=== PATIENT | male | born 1990 | race Caucasian/White ===

== ENCOUNTER 2021-09-05 10:16 | Emergency (ER) | payer OTHER ==
--- OUTSIDE RECORDS SUMMARY | 2021-09-05 10:20 | XMS REPORT | Continuity of Care Document ---
:1990 Author Organization [facility] t Address [address] [place] [address] Care Team Providers Name Role Phone SCHEBLER Primary Care Physician Unavailable May Attending Clinician Unavailable CONNOR, Carlitos Attending Clinician Unavailable ALAMO Attending Clinician Unavailable Alamo DO Attending Clinician GRAMM, A Attending Clinician Unavailable Gramm DISTRICT SALES REPRESENTATIVE, A Attending Clinician Ibrahima Collins Attending Clinician Unavailable Physician, Primary or Family Admitting Clinician Unavailabl e KNOW Admitting Clinician Unavailable GRAMM, A Admitting Clinician Unavailable Payers Payer Name Policy Type Policy Number Effective Date Expiration Date Tristan SHERMAN [id number] 2020 00:00:00 Problems Condition Condition Condition Status Onset Resolution Last Treating Co mments Source Name Details Category Date Date Treatment Clinician Date Calculus Calculus Disease Active Overview: 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 Added automatic ally from request for surgery [id number] Allergies, Adverse Reactions, Alerts Allergy Allergy Status Severity Reaction(s) Onset Inactive Treating Comm ents Source Name Type Date Date Clinician No Known DA Active U [facility] Allergie 6-08 Clear s 00:00: Cormier 00 [facility] No Known DA Active U [facility] Allergie 8-30 Corpus s 00:00: Kay 00 [facility] NO KNOWN Drug Active Univers ALLERGIE Class ity of S [facility] Social History Social Habit Start Date Stop Date Quantity Comments Source Exposure to Not sure [facility] SARS-CoV-2 (event) [facility] Alcohol intake 2021-08-31 2021-08-31 Current drinker Unive rsity of 00:00:00 00:00:00 of alcohol [facility] (finding) [place] Cigarettes smoked 2020-12-25 2020-12-25 Univers ity of current (pack per 00:00:00 00:00:00 [place] ) - Reported [facility] Cigarette 2020-12-25 2020-12-25 University of pack-years 00:00:00 00:00:00 [facility] Tobacco use and 2020-12-25 2020-12-25 Never used Universit y of exposure 00:00:00 00:00:00 [facility] Sex Assigned At [birth year] Universit y of 00:00:00 00:00:00 [facility] Smoking Status Start Date Stop Date Source Current every day smoker 2020-12-25 00:00:00 Uni versity of [facility] Medications Ordered Filled Start Stop Current Ordering Indication Dosage Frequency Signature Comments Components Source Medication Medication Date Date Medication? Clinician (SIG) Name Name ketorolac 15mg 15 mg, Unive rs (TORADOL) 09-01 Slow IV ity of injection 16:30: 15:45 Push, [place] 15 mg 00 :00 ONCE, 1 Medical dose, On Branch Tue09/01/21 at 1030, TAJ naproxen Yes [id number] 550mg Take 1 U nivers sodium 2-01 tablet by ity of (ANAPROX 00:00: mouth 2 [place] DS) 550 mg 00 (two) Medical tablet times Branch daily with meals. methylPREDN Yes [id number] Take by Univers ISolone 09-01 mouth ity of (MEDROL, 00:00: SEE-INSTRU Mango as VASQUEZ,) 4 mg 00 CTIONS. Medica l tablets follow Branch package directions methocarbam 2021- Yes [id number] 500mg Take 1 Univers oL 500 mg 09-0107 tablet by ity of tablet 00:00: 05:59 mouth 3 [place] 00 :00 (three) Medical times Branch daily for 5 days. tamsulosin Yes [id number] .4mg Take 1 U nivers 0.4 mg 24 6-11 capsule by ity of hr capsule 00:00: mouth 00 daily. Medical Branch ibuprofen Yes [id number] 600mg Take 1 U nivers 600 mg 6-11 tablet by ity of tablet 00:00: mouth [place] 00 every 6 Medical (six) Branch hours as needed for Pain (scale 4-6). oxybutynin Yes [id number] 5mg Take 1 U nivers chloride 5 6-11 tablet by ity of mg tablet 00:00: mouth 2 00 (two) Medical times Branch daily as needed for Bladder spasms. tamsulosin Yes [id number] .4mg Take 1 U nivers 0.4 mg 24 6-11 capsule by ity of hr capsule 00:00: mouth 00 daily. Medical Branch ibuprofen Yes [id number] 600mg Take 1 U nivers 600 mg 6-11 tablet by ity of tablet 00:00: mouth [place] 00 every 6 Medical (six) Branch hours as needed for Pain (scale 4-6). oxybutynin Yes [id number] 5mg Take 1 U nivers chloride 5 6-11 tablet by ity of mg tablet 00:00: mouth 2 00 (two) Medical times Branch daily as needed for Bladder spasms. acetaminoph 2021- No [id number] 650mg Take 2 Univers en 6-11 06-12 tablets by ity of (TYLENOL) 00:00: 04:59 mouth [place] 325 mg 00 :00 every 6 Medical tablet (six) Branch hours as needed for Pain (scale 1-3) or Alternate with ibuprofen for pain scale 4-6. acetaminoph 2021- No [id number] 650mg Take 2 Univers en 6-11 06-12 tablets by ity of (TYLENOL) 00:00: 04:59 mouth [place] 325 mg 00 :00 every 6 Medical tablet (six) Branch hours as needed for Pain (scale 1-3) or Alternate with ibuprofen for pain scale 4-6. Vital Signs Vital Name Observation Time Observation Value Comments Source Systolic blood 2021-09-01 15:13:00 134 mm[Hg] Univer sity of [facility] Diastolic blood 2021-09-01 15:13:00 72 [facility]Hg[facility] Heart rate 2021-09-01 15:13:00 84 /min Universi ty [facility] Body temperature 2021-09-01 15:13:00 35.89 May [facility] Respiratory rate 2021-09-01 15:13:00 16 /min [facility] Body height 2021-09-01 15:13:00 177.8 cm Universi ty [facility] Body weight 2021-09-01 15:13:00 65.772 kg Universi ty [facility] BMI 2021-09-01 15:13:00 20[facility]81 [facility] in 2021-09-01 15:13:00 100 /min University Arterial blood by [facility] Pulse oximetry Branch Systolic blood 2021-08-31 19:41:00 109 mm[Hg] Univer sit of [facility] Diastolic blood 2021-08-31 19:41:00 58 mm[Hg] [facility] Heart rate 2021-08-31 19:41:00 77 /min Universi ty [facility] Body temperature 2021-08-31 19:41:00 36.78 May [facility] Respiratory rate 2021-08-31 19:41:00 16 /min Univ [facility] Body weight 2021-08-31 19:41:00 64.048 kg Universi ty [facility] BMI 2021-08-31 19:41:00 19.69 kg/m2 [facility]i ty [facility] [place] [facility] Oxygen saturation in 2021-08-31 19:41:00 99 /min University of Arterial blood by [facility] Pulse oximetry Branch Procedures Procedure Date / Time Performed Performing Clinician Hermilo merlos TROPONIN I 2021-09-01 15:44[facility]00 [facility]OLIC [facility] 2021-09-01 15:44:[address] [facility] ([id number]) Medical [place] LIPID PANEL 2021-09-01 15:44:00 [facility] ([id number])(TOTAL Medical Branch CHOLESTEROL, TRIGLYCERIDES, HDL) CBC WITH DIFF 2021-09-01 15:44:00 [facility] [place] [facility] XR CHEST 1 VW 2021-09-01 15:28:09 [facility] [place] [facility] CONSENT/REFUSAL FOR 2021-09-01 14:59:43 Doctor Unassigned, No Un [facility] DIAGNOSIS AND Name Medical Branch TREATMENT Encounters Start End Encounter Admission Attending Care Care Encounter Source Date/Time Date/Time Type Type Clinicians Facility Department ID 2020-12-01 Inpatient HCAMN JAY [id number] [facility] 18:40:00 [id number] [facility] 2020-04-10 Inpatient Tyrel Marmolejo [facility] SDS [id number] [facility] 13:00:00 [facility] 2020-03-27 Inpatient EL Tyrel Scott [facility] LAB [id number] [facility] 13:00:00 [id number] [facility] 2020-03-10 Inpatient [facility] ER [id number] [facility] 05:58:00 [facility] 2020-01-07 Inpatient [facility] ER [id number] [facility] 18:02:00 [id number] [facility] 2021-09-03 2021-09-03 Outpatient ROHINI HAHN [facility] [id number] Univers 11:00:00 11:00:00 [id number] [facility] 2021-09-03 2021-09-03 Outpatient ROHINI HAHN [facility] [id number] Univers 11:00:00 11:00:00 [facility] 2021-09-01 2021-09-01 Emergency X SINGER NHDINESH ERT [id number] Univers 09:16:00 10:52:00 JER cardoza [facility] 2021-09-01 2021-09-01 [facility] [id number] Univers 09:16:00 10:52:00 Jer SWEENEY [id number] i ty [facility] [id number] [facility] [id number] [facility] [address] 2021-08-31 2021-08-31 Outpatient R SANDY [facility] [id number] Univers 13:30:00 13:45:09 LNIA sony [facility] 2021-08-31 2021-08-31 [facility] [id number] Univers 13:30:00 13:45:09 Visit Lina Schulz PATEL [id number] itcarlitos [facility] [id number] [facility] [id number] Vt dical NAL [address] [place] [address] 2021-08-28 2021-08-28 Outpatient Loraine DELGADO [facility] [id number] Univers 15:09:23 23:59:00 LINA cardoza [facility] 2020-12-02 2020-12-02 Outpatient DANIEL Collins LABO [id number] [facility] 00:11:00 00:11:00 Izzy [id number] [facility] 2020-03-17 2020-03-17 Outpatient Tyrel Scott [facility] LAB [id number] [facility] 13:00:00 13:00:00 [id number] [facility] Results Test Description Test Time Test Comments Results Result Comments Source TROPONIN I 2021-09-01 16:23:55 Test Item Value Reference Range Interpretation Comme nts TROPONIN I (test code = 0.004 ng/mL See_Comment [Au tomated message] The [id number]) system which ge nerated this result tra nsmitted reference range : <=0.034. The reference r braulio was not used to int erpret this result as normal/abnormal . NALDO (test code = NALDO) Reference (Normal) Range (defined by the 99th percentile reference limit): <= 0.034 ng/mL Note: Cardiac troponin begins to rise 3-4 hours after the onset of ischemia. Repeat in 4-6 hours if the sample was drawn within 3-4 hours of the onset of the symptom and found normal. Diagnosis of myocardial injury is made with acute changes in cTn concentrations with at least one serial sample above the 99th percentile upper reference limit (URL), taken together with the patient's clinical presentation. Biotin has been reported to cause a negative bias, interpret results relative to patient's use of biotin. Lab Interpretation Normal (test code = 20607-1) [facility]. METABOLIC PANEL ([id number])2021-09-01 16:12:14 Test Item Value Reference Range Interpretation Comments NA (test code = 140 mmol/L 135-145 1233095400) K (test code = 4.5 mmol/L 3.5-5.0 4661354420) CL (test code = 103 mmol/L 98-108 1595494229) CO2 TOTAL (test code = 28 mmol/L 23-31 2026247105) AGAP (test code = 2-16 5329746883) BUN (test code = 14 mg/dL 7-23 4350546988) GLUCOSE (test code = 74 mg/dL 70-110 5148132560) CREATININE (test code = 0.74 mg/dL 0.60-1.25 4506078266) TOTAL BILI (test code = 1.1 mg/dL 0.1-1.6 4175365454) CALCIUM (test code = 9.6 mg/dL 8.6-10.6 3309436659) T PROTEIN (test code = 8.7 g/dL 6.3-8.2 H 1482079560) ALBUMIN (test code = 5.5 g/dL 3.5-5.0 H 7963423637) ALK PHOS (test code = 49 U/L 34-122 2087187316) ALTv (test code = 21 U/L 5-50 1742-6) AST(SGOT) (test code = 25 U/L 13-40 8245669782) eGFR (test code = mL/min/1.73m2 3919858535) NALDO (test code = NALDO) Association of Glomerular Filtration Rate (GFR) and Staging of Kidney Disease* + --+ --+ ------+| GFR (mL/min/1.73 m2) ?| With Kidney Damage ?| ?Without Kidney Damage+ --------+ --------+ +| ?>90 ?| ?Stage one ?| ? Normal ?+ ---+ ---+ -------+| ?60-89 ?| ?Stage two ?| ? Decreased GFR ? + --+ --+ ------+| ?30-59 ?| ?Stage three ?| ? Stage three ? + --+ --+ ------+| ?15-29 ?| ?Stage four ? | ? Stage four ?+ ---+ ---+ -------+| ?<15 (or dialysis) ? ?| ?Stage five ? | ? Stage five ?+ ---+ ---+ -------+ *Each stage assumes the associated GFR level has been in effect for at least three months. ?Stages 1 to 5, with or without kidney disease, indicate chronic kidney disease. Notes: Determination of stages one and two (with eGFR >59mL/min/1.73 m2) requires estimation of kidney damage for at least three months as defined by structural or functional abnormalities of the kidney, manifested by either:Pathological abnormalities or Markers of kidney damage (including abnormalities in the composition of the blood or urine or abnormalities in imaging tests). Lab Interpretation Abnormal (test code = 50891-1) [id number]TOTAL CHOLESTEROL, TRIGLYCERIDES, HDL)2021-09-01 16:12:14 Test Item Value Reference Range Interpretation Comments CHOL (test code = 181 mg/dL 120-200 4191675076) HDL (test code = 64 mg/dL >40 8298802441) HDLC RATIO (test code = See_Comment [Au tomated message] [id number]) The system Moonfry[employer] generated this result transmit jeannine reference range : <=5.0. The refe rence range was not u sed to interpret th is result as normal/abnormal . TRIG (test code = 93 mg/dL 30-170 6774967513) LDL CHOL (test code = 98 mg/dL See_Comment [Auto mated message] 97734-8) The system Moon[employer]ry[employer] generated this result transmit jeannine reference range : <=160. The refe rence range was not u sed to interpret th is result as normal/abnormal . VLDL (test code = 19 mg/dL 5-60 2694440669) Lab Interpretation (test Normal code = 17907-4) [facility] WITH [id number] 16:00:37 Test Item Value Reference Range Interpretation Comments WBC (test code = See_Comment [Automated 6690-2) message] The sy stem which generated this result transmitted reference range : 4.20 - 10.70 10*3/?L. The reference range was not used to interpret this result as normal/abnormal . RBC (test code = See_Comment [Automated 789-8) message] The sy stem which generated this result transmitted reference range : 4.26 - 5.52 10*6/?L. The reference range was not used to interpret this result as normal/abnormal . HGB (test code = 16.2 g/dL 12.2-16.4 718-7) HCT (test code = 48.4 % 38.4-49.3 4544-3) MCV (test code = 89.8 fL 81.7-95.6 787-2) MCH (test code = 30.1 pg 26.1-32.7 785-6) MCHC (test code = 33.5 g/dL 31.2-35.0 786-4) RDW-SD (test code = 37.6 fL 38.5-51.6 L 82052-5) RDW-CV (test code = 11.6 % 12.1-15.4 L 788-0) PLT (test code = See_Comment [Automated 777-3) message] The sy stem which generated this result transmitted reference range : 150 - 328 10*3/ ?L. The reference r braulio was not used to interpret this result as normal/abnormal . MPV (test code = 10.4 fL 9.8-13.0 74366-8) NRBC/100 WBC (test See_Comment [Automat ed code = 4226328843) message] The system which generated this result transmitted reference range : 0.0 - 10.0 /100 WBCs. The refer ence range was not u sed to interpret th is result as normal/abnormal . NRBC x10^3 (test code <0.01 See_Comment [Auto mated = 3497252328) message] The s ystem which generated this result transmitted reference range : 10*3/?L. The reference range was not used to interpret this result as normal/abnormal . GRAN MAT (NEUT) % 55.2 % (test code = 770-8) IMM GRAN % (test code 0.20 % = 1401555536) LYMPH % (test code = 36.1 % 736-9) MONO % (test code = 7.7 % 5905-5) EOS % (test code = 0.3 % 713-8) BASO % (test code = 0.5 % 706-2) GRAN MAT x10^3(ANC) 3.52 10*3/uL 1.99-6.95 (test code = 6849524284) IMM GRAN x10^3 (test <0.03 0.00-0.06 code = 4358975590) LYMPH x10^3 (test code 2.30 10*3/uL 1.09-3.23 = 731-0) MONO x10^3 (test code 0.49 10*3/uL 0.36-1.02 = 742-7) EOS x10^3 (test code = <0.03 0.06-0.53 L 711-2) BASO x10^3 (test code 0.03 10*3/uL 0.01-0.09 = 704-7) Lab Interpretation Abnormal (test code = 92734-8) [facility] [id number] 10:31:00 Test Item Value Reference Range Interpretation Comments SODIUM (test code = NA) 143 mmol/l 134.0-147.0 N POTASSIUM (test code = K) 4.2 mmol/L 3.6-5.2 N CHLORIDE (test code = CL) 108 mmol/l 98.0-107.0 H CARBON DIOXIDE (test code = CO2) 28.3 mmol/l 21.0-33.0 N ANION GAP (test code = GAP) 10.9 0-20 N GLUCOSE (test code = GLU) 114 mg/dl 70.0-110.0 H BLOOD UREA NITROGEN (test code = 13 mg/dl 7.0-18.0 N BUN) CREATININE (test code = CREAT) 0.92 mg/dL 0.60-1.30 N GFR NON BLACK (test code = 103 mL/min 110-120 L GFRNONBLACK) GFR BLACK (test code = GFRBLACK) 125 mL/min 133-145 L TOTAL PROTEIN (test code = PROT) 6.0 gm/dL 6.4-8.2 L ALBUMIN (test code = ALB) 3.2 gm/dl 3.2-4.7 N CALCIUM (test code = CA) 8.3 mg/dl 8.0-10.5 N BILIRUBIN TOTAL (test code = 0.4 mg/dl 0.0-1.0 N BILT) SGOT/AST (test code = AST) 0 Units/L 15-37 L SGPT/ALT (test code = ALT) 21 Units/L 12.0-78.0 N ALKALINE PHOSPHATASE TOTAL (test 50 Units/L 50.0-136.0 N code = ALKP) [id number] 10:31:00 Test Item Value Reference Range Interpretation Comments MAGNESIUM (test code = MAG) 2.1 mg/dl 1.8-2.4 N CBC W/AUTO [id number] 10:15:00 Test Item Value Reference Range Interpretation Comments WHITE BLOOD CELL (test code = 9.6 K/mm3 4.5-11.0 N WBC) RED BLOOD CELL (test code = 4.55 M/mm3 4.40-5.90 N RBC) HEMOGLOBIN (test code = HGB) 14.2 gm/dL 13.0-17.0 N HEMATOCRIT (test code = HCT) 42.7 % 36.0-48.0 N MEAN CELL VOLUME (test code = 93.8 UM3 80.0-94.0 N MCV) MEAN CELL HGB (test code = MCH) 31.2 UUG 25.5-32.5 N MEAN CELL HGB CONCETRATION 33.3 gm/dL 29.0-35.5 N (test code = MCHC) RED CELL DISTRIBUTION WIDTH 12.4 % 11.5-15.0 N (test code = RDW) RED CELL DISTRIBUTION WIDTH SD 43.3 fL 34.8-50.2 N (test code = RDW-SD) PLATELET COUNT (test code = 220 K/mm3 150-400 N PLT) MEAN PLATELET VOLUME (test code 10.4 fl 7.4-10.4 N = MPV) NEUTROPHIL % (test code = NT%) 52.6 % 49.0-76.0 N IMMATURE GRANULOCYTE % (test 0.2 % 0.0-0.4 N code = IG%) LYMPHOCYTE % (test code = LY%) 37.9 % 23.0-38.0 N MONOCYTE % (test code = MO%) 7.5 % 1.0-10.0 N EOSINOPHIL % (test code = EO%) 1.5 % 1.0-5.0 N BASOPHIL % (test code = BA%) 0.3 % 0.0-1.0 N NUCLEATED RBC % (test code = 0.0 % 0.0-0.1 N NRBC%) NEUTROPHIL # (test code = NT#) 5.0 K/mm3 2.4-6.3 N IMMATURE GRANULOCYTE # (test 0.02 x10 3/uL 0.00-0.07 N code = IG#) LYMPHOCYTE # (test code = LY#) 3.6 K/mm3 1.2-4.0 N MONOCYTE # (test code = MO#) 0.7 K/mm3 0.0-0.6 H EOSINOPHIL # (test code = EO#) 0.1 K/MM3 0.0-0.7 N BASOPHIL # (test code = BA#) 0.0 K/mm3 0.0-0.2 N NUCLEATED RBC # (test code = 0.00 X10 3uL 0.00-0.01 N NRBC#) URINALYSIS [id number] 21:57:00 Test Item Value Reference Range Interpretation Comments UA COLOR (test code = YELLOW COLU) UA APPEARANCE (test code HAZY = APPU) UA GLUCOSE DIPSTICK (test NORMAL mg/dl NORMAL code = DGLUU) UA BILIRUBIN DIPSTICK NEGATIVE mg/dL NEGATIVE (test code = BILU) UA KETONE DIPSTICK (test 15 mg/dl mg/dl NEGATIVE A code = KETU) UA SPECIFIC GRAVITY (test 1.010 1.000-1.030 code = SGU) UA BLOOD DIPSTICK (test 250 Gerardo/micL NEGATIVE A code = RIYA) Gerardo/micL UA PH DIPSTICK (test code 7.0 5.0-9.0 = XI) UA PROTEIN DIPSTICK (test 30 mg/dl NEGATIVE code = PROU) UA UROBILINIOGEN DIPSTICK NORMAL mg/dl NORMAL (test code = URO) UA NITRITE DIPSTICK (test NEGATIVE NEGATIVE code = ADELE) UA LEUKOCYTE ESTERASE 25 Aakash/micL Aakash/micL NEGATIVE A DIPSTICK (test code = LEUU) UA WBC (test code = WBCU) 10-20 WBC/HPF NONE A UA RBC (test code = RBCU) TNTC RBC/HPF 0-3 A UA EPITHELIAL CELLS (test 5-10 EPI/HPF 0-3 A code = EPIU) UA BACTERIA (test code = FEW NONE BACU) UA AMORPHOUS SEDIMENT FEW NONE (test code = AMORU) URINALYSIS [id number] 21:52:00 Test Item Value Reference Range Interpretation Comments UA COLOR (test code = YELLOW COLU) UA APPEARANCE (test code HAZY = APPU) UA GLUCOSE DIPSTICK (test NORMAL mg/dl NORMAL code = DGLUU) UA BILIRUBIN DIPSTICK NEGATIVE mg/dL NEGATIVE (test code = BILU) UA KETONE DIPSTICK (test 15 mg/dl mg/dl NEGATIVE A code = KETU) UA SPECIFIC GRAVITY (test 1.010 1.000-1.030 code = SGU) UA BLOOD DIPSTICK (test 250 Gerardo/micL NEGATIVE A code = RIYA) Gerardo/micL UA PH DIPSTICK (test code 7.0 5.0-9.0 = XI) UA PROTEIN DIPSTICK (test 30 mg/dl NEGATIVE code = PROU) UA UROBILINIOGEN DIPSTICK NORMAL mg/dl NORMAL (test code = URO) UA NITRITE DIPSTICK (test NEGATIVE NEGATIVE code = ADELE) UA LEUKOCYTE ESTERASE 25 Aakash/micL Aakash/micL NEGATIVE A DIPSTICK (test code = LEUU) UA WBC (test code = WBCU) WBC/HPF NONE UA RBC (test code = RBCU) RBC/HPF 0-3 UA EPITHELIAL CELLS (test EPI/HPF 0-3 code = EPIU) UA BACTERIA (test code = NONE BACU) BASIC METABOLIC [id number] 20:24:00 Test Item Value Reference Range Interpretation Comments SODIUM (test code = NA) 138 mmol/l 134.0-147.0 N POTASSIUM (test code = K) 4.7 mmol/L 3.6-5.2 N CHLORIDE (test code = CL) 99 mmol/l 98.0-107.0 N CARBON DIOXIDE (test code = CO2) 28.0 mmol/l 21.0-33.0 N ANION GAP (test code = GAP) 15.7 0-20 N GLUCOSE (test code = GLU) 112 mg/dl 70.0-110.0 H BLOOD UREA NITROGEN (test code = 16 mg/dl 7.0-18.0 N BUN) CREATININE (test code = CREAT) 1.09 mg/dL 0.60-1.30 N GFR NON BLACK (test code = 85 mL/min 110-120 L GFRNONBLACK) GFR BLACK (test code = GFRBLACK) 103 mL/min 133-145 L CALCIUM (test code = CA) 9.4 mg/dl 8.0-10.5 N HEPATIC FUNCTION PANEL [id number] 20:24:00 Test Item Value Reference Range Interpretation Comments TOTAL PROTEIN (test code = PROT) 8.6 gm/dL 6.4-8.2 H ALBUMIN (test code = ALB) 4.8 gm/dl 3.2-4.7 H BILIRUBIN TOTAL (test code = BILT) 0.6 mg/dl 0.0-1.0 N BILIRUBIN DIRECT (test code = 0.1 mg/dl 0.0-0.3 N BILD) SGOT/AST (test code = AST) 37 Units/L 15-37 N SGPT/ALT (test code = ALT) 38 Units/L 12.0-78.0 N ALKALINE PHOSPHATASE TOTAL (test 72 Units/L 50.0-136.0 N code = ALKP) [id number] 20:24:00 Test Item Value Reference Range Interpretation Comments LIPASE (test code = LIP) 53 Units/L 65.0-230.0 L BASIC METABOLIC [id number] 20:17:00 Test Item Value Reference Range Interpretation Comments SODIUM (test code = NA) 138 mmol/l 134.0-147.0 N POTASSIUM (test code = K) 4.7 mmol/L 3.6-5.2 N CHLORIDE (test code = CL) 99 mmol/l 98.0-107.0 N CARBON DIOXIDE (test code = CO2) 28.0 mmol/l 21.0-33.0 N ANION GAP (test code = GAP) 15.7 0-20 N GLUCOSE (test code = GLU) mg/dl 70.0-110.0 BLOOD UREA NITROGEN (test code = mg/dl 7.0-18.0 BUN) CREATININE (test code = CREAT) mg/dL 0.60-1.30 GFR NON BLACK (test code = mL/min 110-120 GFRNONBLACK) GFR BLACK (test code = GFRBLACK) mL/min 133-145 CALCIUM (test code = CA) mg/dl 8.0-10.5 HEPATIC FUNCTION PANEL [id number] 20:17:00 Test Item Value Reference Range Interpretation Comments TOTAL PROTEIN (test code = PROT) gm/dL 6.4-8.2 ALBUMIN (test code = ALB) gm/dl 3.2-4.7 BILIRUBIN TOTAL (test code = BILT) mg/dl 0.0-1.0 BILIRUBIN DIRECT (test code = BILD) mg/dl 0.0-0.3 SGOT/AST (test code = AST) Units/L 15-37 SGPT/ALT (test code = ALT) Units/L 12.0-78.0 ALKALINE PHOSPHATASE TOTAL (test Units/L 50.0-136.0 code = ALKP) [id number] 20:17:00 Test Item Value Reference Range Interpretation Comments LIPASE (test code = LIP) Units/L 65.0-230.0 CBC W/AUTO [id number] 20:10:00 Test Item Value Reference Range Interpretation Comments WHITE BLOOD CELL (test code = 18.7 K/mm3 4.5-11.0 H WBC) RED BLOOD CELL (test code = 5.29 M/mm3 4.40-5.90 N RBC) HEMOGLOBIN (test code = HGB) 16.0 gm/dL 13.0-17.0 N HEMATOCRIT (test code = HCT) 49.0 % 36.0-48.0 H MEAN CELL VOLUME (test code = 92.6 UM3 80.0-94.0 N MCV) MEAN CELL HGB (test code = MCH) 30.2 UUG 25.5-32.5 N MEAN CELL HGB CONCETRATION 32.7 gm/dL 29.0-35.5 N (test code = MCHC) RED CELL DISTRIBUTION WIDTH 12.2 % 11.5-15.0 N (test code = RDW) RED CELL DISTRIBUTION WIDTH SD 41.9 fL 34.8-50.2 N (test code = RDW-SD) PLATELET COUNT (test code = 266 K/mm3 150-400 N PLT) MEAN PLATELET VOLUME (test code 10.7 fl 7.4-10.4 H = MPV) NEUTROPHIL % (test code = NT%) 86.2 % 49.0-76.0 H IMMATURE GRANULOCYTE % (test 0.5 % 0.0-0.4 H code = IG%) LYMPHOCYTE % (test code = LY%) 9.4 % 23.0-38.0 L MONOCYTE % (test code = MO%) 3.6 % 1.0-10.0 N EOSINOPHIL % (test code = EO%) 0.1 % 1.0-5.0 L BASOPHIL % (test code = BA%) 0.2 % 0.0-1.0 N NUCLEATED RBC % (test code = 0.0 % 0.0-0.1 N NRBC%) NEUTROPHIL # (test code = NT#) 16.2 K/mm3 2.4-6.3 H IMMATURE GRANULOCYTE # (test 0.09 x10 3/uL 0.00-0.07 H code = IG#) LYMPHOCYTE # (test code = LY#) 1.8 K/mm3 1.2-4.0 N MONOCYTE # (test code = MO#) 0.7 K/mm3 0.0-0.6 H EOSINOPHIL # (test code = EO#) 0.0 K/MM3 0.0-0.7 N BASOPHIL # (test code = BA#) 0.0 K/mm3 0.0-0.2 N NUCLEATED RBC # (test code = 0.00 X10 3uL 0.00-0.01 N NRBC#) - CT ABD PELVIS W/O [id number] 19:12:00 [facility] [place] VL[place] : 1990 Sex: M FAX: Erinn Blackwell NP [phone] [place]: St: PRE Name: VLADISLAV MONAHAN [facility] : 1990 Age/S: 30/M [address] [facility] Unit: [id number] Loc: E.ERS2 [place], [place]: [place] [address] Acct: [id number] Dis Date: Status: PRE ER PHONE #: [phone] Exam Date: 12/01/20201857 FAX #: [phone] Reason: FLANK PAIN EXAMS: CPT CODE: [id number] CT ABD PELVIS W/O CONT 7[address]86 CT ABDOMEN AND PELVIS W/O CONTRAST Location code: B2 CLINICAL INDICATIONS: Flank pain. TECHNIQUE: Volumetric acquisition of abdomen from the level of the domes of the diaphragm to the symphysis pubis using 3 mm collimation without the use of intravenous or oral contrast. Axial and coronal images were reviewed. Dose lowering technique with automatic exposure control utilized. COMPARISON: None FINDINGS: Lung bases are clear. Liver, spleen, pancreas, and bilateral adrenal glands are within normal limits. Kidneys normal in size and contour bilaterally, demonstrating mild right-sided hydronephrosis secondary to a 15 mm right renal pelvis calculus. Visualized small bowel loops appear within normal limits. Normal appendix. Large bowel loops are within normal limits. Aorta tapers normally without aneurysmal dilatation. No lymphadenopathy. CT PELVIS: Urinary bladder and prostate gland are within normal limits. Osseous structures are grossly within normal limits. IMPRESSION:1. 15 mm right renal pelvis calculus with mild hydronephrosis. 2. Normal appendix. PAGE 1 Signed Report (CONTINUED) FAX: Erinn Blackwell NP [phone] [place]: St: PRE Name: VLADISLAV MONAHAN [facility] : 1990 Age/S: 30/M [address] [facility] Unit: [id number]: [id number] [place], [place]: [place] [id number] Acct: [id number] Dis Date: Status: PRE ER PHONE #: [phone] Exam Date: 12/01/2020 185 FAX #: Reason: FLANK PAIN EXAMS: CPT CODE: [id number] CT ABD PELVIS W/O CONT 73224 <Continued> at 1912 Reported and signed by: Franco Serna M.D. CC: Erinn Blackwell NP Technologist: Delio Christie Trnscrd Dt/Tm: 12/01/2020 (1911) [email or web address] Orig Print D/T: S: 12/01 (5 PAGE 2 Signed ReportCOMPREHENSIVE METABOLIC [id number] 11:28:00 Test Item Value Reference Range Interpretation Comments SODIUM (test code = 138 MMOL/L 133-145 N NA) POTASSIUM (test code = 3.8 MMOL/L 3.6-5.2 N K) CHLORIDE (test code = 102 MMOL/L 100-108 N CL) CARBON DIOXIDE (test 30 MMOL/L 22-32 N code = CO2) GLUCOSE (test code = 98 MG/DL 65-99 N Results of this assay GLU) method may be f alsely depressed orele vated if patient is t aking sulfasalazine. BLOOD UREA NITROGEN 8 MG/DL 6-20 N (test code = BUN) GLOMERULAR FILTRATION 88 77-179 N Report ing units: RATE (test code = GFR) mL/mi n/1.73m\\S\\2 (Modified MDRD Formula) CREATININE (test code 1.01 MG/DL 0.60-1.00 H = CREAT) TOTAL PROTEIN (test 8.4 G/DL 6.4-8.2 H code = PROT) ALBUMIN (test code = 4.6 G/DL 3.4-5.0 N ALB) GLOBULIN (test code = 3.8 G/DL 1.5-3.8 N GLOB) ALBUMIN/GLOBULIN RATIO 1.2 1.1-2.2 N (test code = A/G) CALCIUM (test code = 9.4 MG/DL 8.7-10.5 N CA) BILIRUBIN TOTAL (test 0.8 MG/DL 0.0-1.0 N code = BILT) SGOT/AST (test code = 13 Units/L 15-37 L Result s of this assay AST) method may be f alsely depressed orele vated if patient is t aking sulfasalazine. SGPT/ALT (test code = 24 Units/L 30-65 L Result s of this assay ALT) method may be f alsely depressed orele vated if patient is t aking sulfasalazine. ALKALINE PHOSPHATASE 65 Units/L 50-136 N TOTAL (test code = ALKP) [id number] 11:28:00 Test Item Value Reference Range Interpretation Comments PHOSPHOROUS (test code = PHOS) 2.9 MG/DL 2.5-4.9 N URIC [id number] 11:28:00 Test Item Value Reference Range Interpretation Comments URIC ACID (test code = URIC) 5.7 MG/DL 2.6-6.0 N [id number] 11:28:00 Test Item Value Reference Range Interpretation Comments MAGNESIUM (test code = MAG) 2.4 MG/DL 1.8-2.4 N - XR ABDOMEN 1 [id number] 11:25:00 Patient Name: VLADISLAV MONAHAN Unit No: [id number] EXAMS: CPT CODE: [id number] XR ABDOMEN 1 V 13073 Reason: PRE OP/LITHROTRIPSY - XR ABDOMEN 1 V 03/17/20 11:00 AM Indication: Preop lithotripsy COMPARISON: No prior plain film FINDINGS: There is a 1 cm right renal pelvic area irregular stone. No other radiopaque calculi demonstrable. at 1125 Reported and signed by: Feliciano Mccarthy MD CC: Tyrel Scott Jr, MD Technologist: Kim Mosqueda RT Trscrpt Dt/ ([id number])[email or web address] Orig Print D/T: S: 03/17/2020 (3887) [facility] NAME: VLADISLAV MONAHAN [address] [place] [address] PHYS: Tyrel Scott Jr, [place] [address] : 1990 AGE: 29 SEX: M LOC: D.[facility] PHONE #: [phone] EXAM DATE:03/17/2020 STATUS: PRE [facility] FAX #: RAD NO: DC Dt: PAGE 1 Signed ReportUA RFLX [id number] 11:22:00 Test Item Value Reference Range Interpretation Comments UA COLOR (test code = COLU) Light-Yellow YELLOW UA APPEARANCE (test code = CLEAR CLEAR APPU) UA GLUCOSE DIPSTICK (test NORMAL mg/dL NEGATIVE code = DGLUU) UA BILIRUBIN DIPSTICK (test NEGATIVE NEGATIVE code = BILU) UA KETONE DIPSTICK (test code NEGATIVE mg/dL NEGATIVE = KETU) UA SPECIFIC GRAVITY (test 1.006 1.001-1.035 N code = SGU) UA BLOOD DIPSTICK (test code 1+ = RIYA) UA PH DIPSTICK (test code = 6.5 5.5-7.0 N XI) UA PROTEIN DIPSTICK (test NEGATIVE mg/dL NEGATIVE code = PROU) UA UROBILINOGEN DIPSTICK NORMAL mg/dL NORMAL (test code = URO) UA NITRITE DIPSTICK (test NEGATIVE NEGATIVE code = ADELE) UA LEUKOCYTE ESTERASE 75 NEGATIVE A DIPSTICK (test code = LEUU) UA COMMENT (test code = COMU) VOLUME 10-12 ML URINE SPECIMEN DESCRIPTION Clean Catch (test code = UASPEC) UA [id number] 11:22:00 Test Item Value Reference Range Interpretation Comments UA WBC (test code = WBCU) < 10 #/HPF 0-10 UA RBC (test code = RBCU) 0-2 #/HPF NONE SEEN UA SQUAMOUS CELLS (test code 0 - 20 #/LPF <100 = SQU) UA CULTURE NEEDED? (test Criteria not met code = UACULT) CBC W/AUTO [id number] 11:11:00 Test Item Value Reference Range Interpretation Comments WHITE BLOOD CELL (test code = 7.82 x10 3/uL 4.80-10.80 N WBC) RED BLOOD CELL (test code = 5.35 x10 6/uL 4.7-6.1 N RBC) HEMOGLOBIN (test code = HGB) 15.9 G/DL 14.0-17.0 N HEMATOCRIT (test code = HCT) 47.2 % 42-52 N MEAN CELL VOLUME (test code = 88.2 FL 80-94 N MCV) MEAN CELL HGB (test code = MCH) 29.7 PG 27-31 N MEAN CELL HGB CONCENTRATION 33.7 G/DL 33-37 N (test code = MCHC) RED CELL DISTRIBUTION WIDTH 11.8 % 11.5-14.5 N (test code = RDW) PLATELET COUNT (test code = 299 x10 3/uL 150-450 N PLT) MEAN PLATELET VOLUME (test code 10.3 FL 7.4-10.4 N = MPV) NEUTROPHIL % (test code = NT%) 51.2 % 42-86 N IMMATURE GRANULOCYTE % (test 0.1 % 0.0-2.0 N code = IG%) LYMPHOCYTE % (test code = LY%) 39.8 % 24-44 N MONOCYTE % (test code = MO%) 7.7 % 0.0-4.0 H EOSINOPHIL % (test code = EO%) 0.8 % 0.0-2.7 N BASOPHIL % (test code = BA%) 0.4 % 0.0-0.5 N NUCLEATED RBC % (test code = 0.0 % 0.0-0.0 N NRBC%) NEUTROPHIL # (test code = NT#) 4.01 x10 3/uL 1.8-7.7 N IMMATURE GRANULOCYTE # (test 0.01 x10 3/uL 0.00-0.03 N code = IG#) LYMPHOCYTE # (test code = LY#) 3.11 x10 3/uL 1.0-4.8 N MONOCYTE # (test code = MO#) 0.60 x10 3/uL 0.0-0.8 N EOSINOPHIL # (test code = EO#) 0.06 x10 3/uL 0.0-0.5 N BASOPHIL # (test code = BA#) 0.03 x10 3/uL 0.0-0.2 N NUCLEATED RBC # (test code = 0.0 X10 3/uL 0.0-0.2 N NRBC#) UA RFLX [id number] 10:54:00 Test Item Value Reference Range Interpretation Comments UA COLOR (test code = COLU) Light-Yellow YELLOW UA APPEARANCE (test code = CLEAR CLEAR APPU) UA GLUCOSE DIPSTICK (test NORMAL mg/dL NEGATIVE code = DGLUU) UA BILIRUBIN DIPSTICK (test NEGATIVE NEGATIVE code = BILU) UA KETONE DIPSTICK (test code NEGATIVE mg/dL NEGATIVE = KETU) UA SPECIFIC GRAVITY (test 1.006 1.001-1.035 N code = SGU) UA BLOOD DIPSTICK (test code 1+ = RIYA) UA PH DIPSTICK (test code = 6.5 5.5-7.0 N XI) UA PROTEIN DIPSTICK (test NEGATIVE mg/dL NEGATIVE code = PROU) UA UROBILINOGEN DIPSTICK NORMAL mg/dL NORMAL (test code = URO) UA NITRITE DIPSTICK (test NEGATIVE NEGATIVE code = ADELE) UA LEUKOCYTE ESTERASE 75 NEGATIVE A DIPSTICK (test code = LEUU) UA COMMENT (test code = COMU) VOLUME 10-12 ML URINE SPECIMEN DESCRIPTION Clean Catch (test code = UASPEC) UA [id number] 10:54:00 Test Item Value Reference Range Interpretation Comments UA WBC (test code = WBCU) #/hpf <10 UA RBC (test code = RBCU) #/hpf NONE SEEN UA SQUAMOUS CELLS (test code = SQU) #/lpf <100 UA CULTURE NEEDED? (test code = UACULT) UA RFLX [id number] 10:54:00 Test Item Value Reference Range Interpretation Comments UA COLOR (test code = COLU) Light-Yellow YELLOW UA APPEARANCE (test code = CLEAR CLEAR APPU) UA GLUCOSE DIPSTICK (test NORMAL mg/dL NEGATIVE code = DGLUU) UA BILIRUBIN DIPSTICK (test NEGATIVE NEGATIVE code = BILU) UA KETONE DIPSTICK (test code NEGATIVE mg/dL NEGATIVE = KETU) UA SPECIFIC GRAVITY (test 1.006 1.001-1.035 N code = SGU) UA BLOOD DIPSTICK (test code 1+ = RIYA) UA PH DIPSTICK (test code = 6.5 5.5-7.0 N XI) UA PROTEIN DIPSTICK (test NEGATIVE mg/dL NEGATIVE code = PROU) UA UROBILINOGEN DIPSTICK NORMAL mg/dL NORMAL (test code = URO) UA NITRITE DIPSTICK (test NEGATIVE NEGATIVE code = ADELE) UA LEUKOCYTE ESTERASE 75 NEGATIVE A DIPSTICK (test code = LEUU) UA COMMENT (test code = COMU) VOLUME 10-12 ML URINE SPECIMEN DESCRIPTION Clean Catch (test code = UASPEC) UA [id number] 10:54:00 Test Item Value Reference Range Interpretation Comments UA WBC (test code = WBCU) #/hpf <10 UA RBC (test code = RBCU) #/hpf NONE SEEN UA SQUAMOUS CELLS (test code = SQU) #/lpf <100 UA CULTURE NEEDED? (test code = UACULT) - XR CHEST 1 [id number] 07:18:00 Patient Name: VLADISLAV MONAHAN Unit No: [id number] EXAMS: CPT CODE: [id number] XR CHEST 1 V 64484 Reason: Abdominal pain PROCEDURE INFORMATION: Exam: XR Chest, 1 View Exam date and time: 03/10/2020 7:01 AM Age: 29 years old Clinical indication: Other: Abd pain; Additional info: Abdominal pain TECHNIQUE: Imaging protocol: XR of the chest Views: 1 view. COMPARISON: DX XR CHEST 2V 09/12/2018 8:55 AM FINDINGS: Lungs: Unremarkable. No consolidation. Pleural space: Unremarkable. No pleural effusion. No pneumothorax. Heart/Mediastinum: Unremarkable. No cardiomegaly. Bones/joints: Unremarkable. IMPRESSION: No acute findings. at 0718 Reportedand signed by: Filemon Montana CC: Kend[place] Strauss DO Technologist: Vivek Rosen RT Trscrpt Dt/ ([id number])[email or web address] Orig Print D/T: S: 03/10/2020 (717) [facility] NAME: VLADISLAV MONAHAN [address] [facility] PHYS: [place] [address] : 1990 AGE: 29 SEX: M LOC: [facility] PHONE #: [phone] EXAM DATE: 03/10/2020 STATUS: DEP ER FAX #: RAD NO: DC Dt: PAGE 1 Signed ReportUA RFLX MICROSCOPIC [id number] 06:49:00 Test Item Value Reference Range Interpretation Comments UA COLOR (test code = COLU) Light-Yellow YELLOW UA APPEARANCE (test code = CLEAR CLEAR APPU) UA GLUCOSE DIPSTICK (test NORMAL mg/dL NEGATIVE code = DGLUU) UA BILIRUBIN DIPSTICK (test NEGATIVE NEGATIVE code = BILU) UA KETONE DIPSTICK (test NEGATIVE mg/dL NEGATIVE code = KETU) UA SPECIFIC GRAVITY (test 1.027 1.001-1.035 N code = SGU) UA BLOOD DIPSTICK (test code 3+ = RIYA) UA PH DIPSTICK (test code = 5.5 5.5-7.0 N XI) UA PROTEIN DIPSTICK (test 30 mg/dL NEGATIVE A code = PROU) UA UROBILINOGEN DIPSTICK NORMAL mg/dL NORMAL (test code = URO) UA NITRITE DIPSTICK (test NEGATIVE NEGATIVE code = ADELE) UA LEUKOCYTE ESTERASE TRACE NEGATIVE DIPSTICK (test code = LEUU) UA COMMENT (test code = VOLUME 10-12 ML COMU) URINE SPECIMEN DESCRIPTION Clean Catch (test code = UASPEC) UA WBC (test code = WBCU) < 10 #/HPF 0-10 UA SQUAMOUS CELLS (test code 0 - 20 #/lpf <100 = SQU) UA CULTURE NEEDED? (test Criteria not met code = UACULT) Indication for culture: Flank PainURINE SOURCE: Clean CatchUA MICROSCOPIC 2020-03-10 06:49:00 Test Item Value Reference Range Interpretation Comments UA RBC (test code = RBCU) >50 #/HPF NONE SEEN A UA MUCUS (test code = MUCU) RARE #/lpf NONE SEEN Indication for culture: Flank PainURINE SOURCE: Clean CatchBASIC METABOLIC [id number] 06:46:00 Test Item Value Reference Range Interpretation Comments SODIUM (test code = 139 MMOL/L 133-145 N NA) POTASSIUM (test code = 4.0 MMOL/L 3.6-5.2 N K) CHLORIDE (test code = 102 MMOL/L 100-108 N CL) CARBON DIOXIDE (test 28 MMOL/L 22-32 N code = CO2) GLUCOSE (test code = 109 MG/DL 65-99 H Results of this assay GLU) method may be f alsely depressed orele vated if patient is t aking sulfasalazine. BLOOD UREA NITROGEN 17 MG/DL 6-20 N (test code = BUN) GLOMERULAR FILTRATION 100 77-179 N Report ing units: RATE (test code = GFR) mL/mi n/1.73m\\S\\2 (Modified MDRD Formula) CREATININE (test code 0.90 MG/DL 0.60-1.00 N = CREAT) CALCIUM (test code = 8.4 MG/DL 8.7-10.5 L CA) HEPATIC FUNCTION [id number] 06:46:00 Test Item Value Reference Range Interpretation Comments TOTAL PROTEIN (test 7.4 G/DL 6.4-8.2 N code = PROT) ALBUMIN (test code = 4.0 G/DL 3.4-5.0 N ALB) GLOBULIN (test code = 3.4 G/DL 1.5-3.8 N GLOB) ALBUMIN/GLOBULIN RATIO 1.2 1.1-2.2 N (test code = A/G) BILIRUBIN TOTAL (test 0.4 MG/DL 0.0-1.0 N code = BILT) BILIRUBIN DIRECT (test < 0.1 MG/DL 0.0-0.3 N code = BILD) BILIRUBIN INDIRECT 0.3 MG/DL 0.0-0.7 N (test code = BILIND) SGOT/AST (test code = 21 Units/L 15-37 N Result s of this AST) assay method ma y be falsely depress ed orelevated if patient is taki ng sulfasalazine. SGPT/ALT (test code = 26 Units/L 30-65 L Result s of this ALT) assay method ma y be falsely depress ed orelevated if patient is taki ng sulfasalazine. ALKALINE PHOSPHATASE 70 Units/L 50-136 N TOTAL (test code = ALKP) [id number] 06:46:00 Test Item Value Reference Range Interpretation Comments LIPASE (test code = LIP) 101 Units/L 73-393 N - CT ABD PELVIS W/O [id number] 06:40:00 Patient Name: VLADISLAV MONAHAN Unit No: [id number] EXAMS: CPT CODE: [id number] CT ABD PELVIS W/O CONT 04161 Reason: stone PROCEDURE INFORMATION: Exam: CT Abdomen And Pelvis Without Contrast Exam date and time: 03/10/2020 6:22 AM Age: 29 years old Clinical indication: Other: Stone TECHNIQUE: Imaging protocol: Computed tomography of the abdomen and pelvis without contrast. Radiation optimization: All CT scans at this facility use at least one of these dose optimization techniques: automated exposure control; mA and/or kV adjustment per patient size (includes targeted exams where dose is matched to clinical indication); or iterative reconstruction. COMPARISON: CT ABD PELVIS W/CONT 01/07/2020 11:30 PM FINDINGS: Lungs: Minimal dependent basilar atelectasis. Mediastinal space: Patulous distal esophagus. Liver: No enlargement or mass. Gallbladder and bile ducts: Contracted without gallstones, wall thickening or other findings of acute cholecystitis. Biliary tract nondilated. Pancreas: No enlargement. No mass. No ductal dilatation. Spleen: Normal size. No mass. Adrenals: No mass. No enlargement. No hemorrhage. Kidneys and ureters: Right nephrolithiasis with an irregular 9 mm x 6 mm calculus within the right renal pelvis. This does not appear to be acutely obstructing. There is mild right hydroureteronephrosis to the level of the bladder without discrete ureteral calculus demonstrated. Mild peripelvic and periureteral edema. Edema from recently passed calculus could have this appearance. Pyelitis/pyelonephritis not excluded.No left-sided obstructive uropathy. No left-sided nephrolithiasis or ureterolithiasis. Stomach and bowel: Moderate fecal load within the colon. No significant diverticulosisor diverticulitis. No colitis. Mildly distended proximal and mid small bowel without significant wall thickening or pneumatosis. Probable paralytic ileus. No mechanical small bowel obstruction. No free air. Appendix: Normal appearance without acute inflammation. Intraperitoneal space: No free intraperitoneal air demonstrated. No significant free fluid demonstrated. Vasculature: Aorta normal caliber without aneurysm, dissection ordisruption. Lymph nodes: Mildly prominent right lower quadrant and central mesenteric lymph nodes. Mildly prominent inguinal lymph nodes. Reactive versus mild mesenteric adenitis. [facility] NAME: VLADISLAV MONAHAN SPID PHYS: [place] [address] : 1990 AGE: 29 SEX: M LOC: [facility] PHONE #: [phone] EXAM DATE: 03/10/2020 STATUS: REG ER FAX #: RAD NO: DC Dt: PAGE 1 Signed Report (CONTINUED) Patient Name: VLADISLAV MONAHAN Unit No: [id number] EXAMS: CPT CODE: [id number] CT ABD PELVIS W/O CONT 82505 <Continued> Reason: stone Bladder: Borderline bladder wall thickening, lack of distention versus cystitis. Reproductive: Prostate is normal size. Bones/joints: Unremarkable. No acute fracture. Soft tissues: No significant soft tissue abnormalities demonstrated. IMPRESSION: 1. Right nephrolithiasis with an irregular 9 mm x 6 mm calculus within the right renal pelvis. This does not appear to be acutely obstructing. There is mild right hydroureteronephrosis to the level of the bladder without discrete ureteral calculus demonstrated. Mild peripelvic and periureteral edema. Edema from recently passed calculus could have this appearance. Pyelitis/pyelonephritis not excluded. 2. Mildly distended proximal and mid small bowel without significant wall thickening or pneumatosis. Probableparalytic ileus. No mechanical small bowel obstruction. No free air. 3. Additional nonemergent findings as described above. at 0640 Reported and signed by: Amado Montana CC: Kendell Strauss DO Technologist: Luis ROLLINS Trscrpt Dt/ ([id number])[email or web address] [place] Print D/T: S: 03/10/2020 (639) CTDI: DLP: [facility] NAME: VLADISLAV MONAHAN SPID PHYS: [place] [address] : 1990 AGE: 29 SEX: M LOC: [facility] PHONE #: [phone] EXAM DATE: 03/10/2020 STATUS: REG ER FAX #: RAD NO: DC Dt: PAGE 2 Signed ReportUA RFLX MICROSCOPIC CULTURE 2020-03-10 06:32:00 Test Item Value Reference Range Interpretation Comments UA COLOR (test code = COLU) Light-Yellow YELLOW UA APPEARANCE (test code = CLEAR CLEAR APPU) UA GLUCOSE DIPSTICK (test NORMAL mg/dL NEGATIVE code = DGLUU) UA BILIRUBIN DIPSTICK (test NEGATIVE NEGATIVE code = BILU) UA KETONE DIPSTICK (test code NEGATIVE mg/dL NEGATIVE = KETU) UA SPECIFIC GRAVITY (test 1.027 1.001-1.035 N code = SGU) UA BLOOD DIPSTICK (test code 3+ = RIYA) UA PH DIPSTICK (test code = 5.5 5.5-7.0 N XI) UA PROTEIN DIPSTICK (test 30 mg/dL NEGATIVE A code = PROU) UA UROBILINOGEN DIPSTICK NORMAL mg/dL NORMAL (test code = URO) UA NITRITE DIPSTICK (test NEGATIVE NEGATIVE code = ADELE) UA LEUKOCYTE ESTERASE TRACE NEGATIVE DIPSTICK (test code = LEUU) UA COMMENT (test code = COMU) VOLUME 10-12 ML URINE SPECIMEN DESCRIPTION Clean Catch (test code = UASPEC) UA WBC (test code = WBCU) < 10 #/HPF 0-10 UA SQUAMOUS CELLS (test code #/lpf <100 = SQU) UA CULTURE NEEDED? (test code = UACULT) Indication for culture: Flank PainURINE SOURCE: Clean CatchUA MICROSCOPIC 2020-03-10 06:32:00 Test Item Value Reference Range Interpretation Comments UA RBC (test code = RBCU) >50 #/HPF NONE SEEN A UA MUCUS (test code = MUCU) RARE #/lpf NONE SEEN Indication for culture: Flank PainURINE SOURCE: Clean CatchUA RFLX MICROSCOPIC [id number] 06:30:00 Test Item Value Reference Range Interpretation Comments UA COLOR (test code = COLU) Light-Yellow YELLOW UA APPEARANCE (test code = CLEAR CLEAR APPU) UA GLUCOSE DIPSTICK (test NORMAL mg/dL NEGATIVE code = DGLUU) UA BILIRUBIN DIPSTICK (test NEGATIVE NEGATIVE code = BILU) UA KETONE DIPSTICK (test code NEGATIVE mg/dL NEGATIVE = KETU) UA SPECIFIC GRAVITY (test 1.027 1.001-1.035 N code = SGU) UA BLOOD DIPSTICK (test code 3+ = RYIA) UA PH DIPSTICK (test code = 5.5 5.5-7.0 N XI) UA PROTEIN DIPSTICK (test 30 mg/dL NEGATIVE A code = PROU) UA UROBILINOGEN DIPSTICK NORMAL mg/dL NORMAL (test code = URO) UA NITRITE DIPSTICK (test NEGATIVE NEGATIVE code = ADELE) UA LEUKOCYTE ESTERASE TRACE NEGATIVE DIPSTICK (test code = LEUU) UA COMMENT (test code = COMU) VOLUME 10-12 ML URINE SPECIMEN DESCRIPTION Clean Catch (test code = UASPEC) UA WBC (test code = WBCU) #/hpf <10 UA SQUAMOUS CELLS (test code #/lpf <100 = SQU) UA CULTURE NEEDED? (test code = UACULT) Indication for culture: Flank PainURINE SOURCE: Clean CatchUA MICROSCOPIC 2020-03-10 06:30:00 Test Item Value Reference Range Interpretation Comments UA RBC (test code = RBCU) #/HPF NONE SEEN Indication for culture: Flank PainURINE SOURCE: Clean CatchUA RFLX MICROSCOPIC [id number] 06:30:00 Test Item Value Reference Range Interpretation Comments UA COLOR (test code = COLU) Light-Yellow YELLOW UA APPEARANCE (test code = CLEAR CLEAR APPU) UA GLUCOSE DIPSTICK (test NORMAL mg/dL NEGATIVE code = DGLUU) UA BILIRUBIN DIPSTICK (test NEGATIVE NEGATIVE code = BILU) UA KETONE DIPSTICK (test code NEGATIVE mg/dL NEGATIVE = KETU) UA SPECIFIC GRAVITY (test 1.027 1.001-1.035 N code = SGU) UA BLOOD DIPSTICK (test code 3+ = RIYA) UA PH DIPSTICK (test code = 5.5 5.5-7.0 N XI) UA PROTEIN DIPSTICK (test 30 mg/dL NEGATIVE A code = PROU) UA UROBILINOGEN DIPSTICK NORMAL mg/dL NORMAL (test code = URO) UA NITRITE DIPSTICK (test NEGATIVE NEGATIVE code = ADELE) UA LEUKOCYTE ESTERASE TRACE NEGATIVE DIPSTICK (test code = LEUU) UA COMMENT (test code = COMU) VOLUME 10-12 ML URINE SPECIMEN DESCRIPTION Clean Catch (test code = UASPEC) UA WBC (test code = WBCU) #/hpf <10 UA SQUAMOUS CELLS (test code #/lpf <100 = SQU) UA CULTURE NEEDED? (test code = UACULT) Indication for culture: Flank PainURINE SOURCE: Clean CatchUA MICROSCOPIC 2020-03-10 06:30:00 Test Item Value Reference Range Interpretation Comments UA RBC (test code = RBCU) #/HPF NONE SEEN Indication for culture: Flank PainURINE SOURCE: Clean CatchCBC W/AUTO DIFF 2020-03-10 06:26:00 Test Item Value Reference Range Interpretation Comments WHITE BLOOD CELL (test code = 9.93 x10 3/uL 4.80-10.80 N WBC) RED BLOOD CELL (test code = 5.16 x10 6/uL 4.7-6.1 N RBC) HEMOGLOBIN (test code = HGB) 15.7 G/DL 14.0-17.0 N HEMATOCRIT (test code = HCT) 45.1 % 42-52 N MEAN CELL VOLUME (test code = 87.4 FL 80-94 N MCV) MEAN CELL HGB (test code = MCH) 30.4 PG 27-31 N MEAN CELL HGB CONCENTRATION 34.8 G/DL 33-37 N (test code = MCHC) RED CELL DISTRIBUTION WIDTH 11.8 % 11.5-14.5 N (test code = RDW) PLATELET COUNT (test code = 273 x10 3/uL 150-450 N PLT) MEAN PLATELET VOLUME (test code 9.6 FL 7.4-10.4 N = MPV) NEUTROPHIL % (test code = NT%) 44.6 % 42-86 N IMMATURE GRANULOCYTE % (test 0.2 % 0.0-2.0 N code = IG%) LYMPHOCYTE % (test code = LY%) 45.6 % 24-44 H MONOCYTE % (test code = MO%) 7.6 % 0.0-4.0 H EOSINOPHIL % (test code = EO%) 1.6 % 0.0-2.7 N BASOPHIL % (test code = BA%) 0.4 % 0.0-0.5 N NUCLEATED RBC % (test code = 0.0 % 0.0-0.0 N NRBC%) NEUTROPHIL # (test code = NT#) 4.43 x10 3/uL 1.8-7.7 N IMMATURE GRANULOCYTE # (test 0.02 x10 3/uL 0.00-0.03 N code = IG#) LYMPHOCYTE # (test code = LY#) 4.53 x10 3/uL 1.0-4.8 N MONOCYTE # (test code = MO#) 0.75 x10 3/uL 0.0-0.8 N EOSINOPHIL # (test code = EO#) 0.16 x10 3/uL 0.0-0.5 N BASOPHIL # (test code = BA#) 0.04 x10 3/uL 0.0-0.2 N NUCLEATED RBC # (test code = 0.0 X10 3/uL 0.0-0.2 N NRBC#) - CT ABD PELVIS [id number] 00:18:00 Patient Name: VLADISLAV MONAHAN Unit No: [id number] EXAMS: CPT CODE: [id number] CT ABD PELVIS W/CONT [id number] Reason: R flank pain, gross hematuria PROCEDURE INFORMATION: Exam: CT Abdomen And Pelvis With Contrast; Urography Exam date and time: 01/07/2020 11:42 PM Age: 29 years old Clinical indication: Other: R flank pain, gross hematuria TECHNIQUE: Imagingprotocol: Computed tomography of the abdomen and pelvis with intravenous contrast. Exam focused on the kidneys and ureters. Radiation optimization: All CT scans at this facility use at least one of these dose optimization techniques: automated exposure control; mA and/or kV adjustment per patient size (includes targeted exams where dose is matched to clinical indication); or iterative reconstruction. Contrast material: ISOVUE 370; Contrast volume: 96 ml; Contrast route: IV; COMPARISON: No relevant prior studies available. FINDINGS: Liver: Normal. No mass. Gallbladder and bile ducts: Normal. No calcified stones. No ductal dilation. Pancreas: Normal. No ductal dilation. Spleen: Normal. No splenomegaly. Adrenals: Normal. No mass. Kidneys and ureters: There is a right-sided renal pelvis stone that measures 7 x 5 mm in size. There is no hydronephrosis. There is no surrounding inflammatory changes. On delayed images contrast uptakeis symmetric between the kidneys. There is no ureteral stone present. There is no focal mass. The left kidney and ureter is normal. Stomach and bowel: Normal. No obstruction. No mucosal thickening. Appendix: A normal appendix is seen. Intraperitoneal space: Unremarkable. No free air. No significant fluid collection. Lymph nodes: Unremarkable. No enlarged lymph nodes. Vasculature: Unremarkable. No abdominal aortic aneurysm. Bladder: Unremarkable. Reproductive: Unremarkable. Bones/joints: Unremarkable.No acute fracture. No dislocation. Soft tissues: Unremarkable. IMPRESSION: 1. Right-sided 7 x 5 mm renal pelvis stone that shows no current signs of obstruction. This is likely the cause of the patient's symptoms. There is no other renal or ureteral stone present. There is no hydronephrosis or inflammatory [facility]: NO.Genie - Tayo [place]de [place] [address] : 1990 AGE: 29 SEX: M LOC: HELADIO PHONE #: [phone] EXAM DATE: 01/07/2020 STATUS: REG ER FAX #: RAD NO: DC Dt: PAGE 1 Signed Report (CONTINUED) Patient Name: VLADISLAV MONAHAN Unit No: [id number] EXAMS: CPT CODE: [id number] CT ABD PELVIS W/CONT [id number] <Continued> Reason: R flank pain, gross hematuria changes. 2. Normal appendix with no evidence for acute appendicitis. 3. The remainder of the examination is unremarkable. at 0018 Reported and signed by: ABILIO EVERETT CC: Tayo Ugalde DO Technologist: Jessica Joy CT; Krista Genao RT Trscrpt Dt/ (001)[email or web address].VR Orig Print D/T: S: 01/08/2020(0018) CTDI: DLP: [facility] NAME: VLADISLAV MONAHAN [address] SP[address] PHYS: CHUY - Tayo [place]de [place] [address] : 1990 AGE: 29 SEX: M LOC: HELADIO PHONE #: [phone] EXAM DATE: 01/07/2020 STATUS: REG ER FAX #: RAD NO: DC Dt: PAGE 2 Signed ReportDRUG OF ABUSE SCREEN [id number] 23:39:00 Test Item Value Reference Interpretation Comments Range UR COCAINE (test NEGATIVE NEGATIVE code = COCAU) UR MDMA (test code = NEGATIVE NEGATIVE MDMAQLU) UR CANNABINOIDS NEGATIVE NEGATIVE (test code = CANU) UR AMPHETAMINE (test NEGATIVE NEGATIVE code = AMPHU) UR BARBITURATE QUAL NEGATIVE NEGATIVE (test code = BARBQLU) UR BENZODIAZEPINE NEGATIVE NEGATIVE (test code = BENZU) UR OPIATES QUAL NEGATIVE NEGATIVE (test code = OPIAQLU) UR PHENCYCLIDINE NEGATIVE NEGATIVE Urine Drug Abuse Screen (PCP) (test code = provides preliminary PHENCU) results thatmay be confirmed by zenaida robles methods (i.e., GC/MS) at [facility]. Results of scre en may not be usedin crimi nal justice, job performance or professionalcre dential review, or infa nt custody issues. Negativ e Delight Level ng/ml ------- ----- Cocaine 300 Methamp hetamine (Ecstacy) 500 Cannabinoids (THC) 50 Amphetamine 1000 Barbiturate s 200 Benzodia zepines 200 Opiat es 300 Ph encyclidine (PCP) 25 COMPREHENSIVE METABOLIC [id number] 19:05:00 Test Item Value Reference Range Interpretation Comments SODIUM (test code = 141 MMOL/L 133-145 N NA) POTASSIUM (test code = 3.8 MMOL/L 3.6-5.2 N K) CHLORIDE (test code = 104 MMOL/L 100-108 N CL) CARBON DIOXIDE (test 29 MMOL/L 22-32 N code = CO2) GLUCOSE (test code = 118 MG/DL 65-99 H Results of this assay GLU) method may be f alsely depressed orele vated if patient is t aking sulfasalazine. BLOOD UREA NITROGEN 15 MG/DL 6-20 N (test code = BUN) GLOMERULAR FILTRATION 103 77-179 N Report ing units: RATE (test code = GFR) mL/mi n/1.73m\\S\\2 (Modified MDRD Formula) CREATININE (test code 0.88 MG/DL 0.60-1.00 N = CREAT) TOTAL PROTEIN (test 7.8 G/DL 6.4-8.2 N code = PROT) ALBUMIN (test code = 4.3 G/DL 3.4-5.0 N ALB) GLOBULIN (test code = 3.5 G/DL 1.5-3.8 N GLOB) ALBUMIN/GLOBULIN RATIO 1.2 1.1-2.2 N (test code = A/G) CALCIUM (test code = 9.0 MG/DL 8.7-10.5 N CA) BILIRUBIN TOTAL (test 0.6 MG/DL 0.0-1.0 N code = BILT) SGOT/AST (test code = 19 Units/L 15-37 N Result s of this assay AST) method may be f alsely depressed orele vated if patient is t aking sulfasalazine. SGPT/ALT (test code = 32 Units/L 30-65 N Result s of this assay ALT) method may be f alsely depressed orele vated if patient is t aking sulfasalazine. ALKALINE PHOSPHATASE 67 Units/L 50-136 N TOTAL (test code = ALKP) UA RFLX MICROSCOPIC [id number] 18:49:00 Test Item Value Reference Range Interpretation Comments UA COLOR (test code = COLU) Light[place] YELLOW UA APPEARANCE (test code = Turbid CLEAR A APPU) UA GLUCOSE DIPSTICK (test NORMAL mg/dL NEGATIVE code = DGLUU) UA BILIRUBIN DIPSTICK (test NEGATIVE NEGATIVE code = BILU) UA KETONE DIPSTICK (test code NEGATIVE mg/dL NEGATIVE = KETU) UA SPECIFIC GRAVITY (test 1.016 1.001-1.035 N code = SGU) UA BLOOD DIPSTICK (test code 3+ = RIYA) UA PH DIPSTICK (test code = 8.5 5.5-7.0 H IX) UA PROTEIN DIPSTICK (test 50 mg/dL NEGATIVE A code = PROU) UA UROBILINOGEN DIPSTICK NORMAL mg/dL NORMAL (test code = URO) UA NITRITE DIPSTICK (test NEGATIVE NEGATIVE code = ADELE) UA LEUKOCYTE ESTERASE TRACE NEGATIVE DIPSTICK (test code = LEUU) UA COMMENT (test code = COMU) VOLUME 10-12 ML URINE SPECIMEN DESCRIPTION Clean Catch (test code = UASPEC) UA WBC (test code = WBCU) 31 - 40 #/HPF 0-10 A UA SQUAMOUS CELLS (test code 0 - 20 #/LPF <100 = SQU) UA CULTURE NEEDED? (test code Criteria met = UACULT) Indication for culture: Flank PainURINE SOURCE: Clean CatchUA MICROSCOPIC 2020-01-07 18:49:00 Test Item Value Reference Range Interpretation Comments UA RBC (test code = RBCU) >50 #/HPF NONE SEEN A UA BACTERIA (test code = BACU) 1+ HPF NONE SEEN Indication for culture: Flank PainURINE SOURCE: Clean CatchPROTHROMBIN TIME 2020-01-07 18:48:00 Test Item Value Reference Range Interpretation Comments PROTHROMBIN TIME 11.7 SECONDS 9.6-12.3 N PATIENT (test code = PTP) INTERNATIONAL NORMAL 1.03 Recomme nded INR range RATIO (test code = (warfarin therapy): INR) 2.0 - 3.0I NR (International Normalized Rati o) should beused w hen interpreting or al anticoaglulant therapy. For at rial fibrillation an d treatment orprevention of deep vein thrombosis . Patients with [place] s tent *: 2 .0 - 3.0 Patients wi th mechanical hear t valve *: 2.5 - 3.5 Patients with flex-stent *: 3.0 - 4.0(*) = lead php developer's suggested range Is patient on anticoagulants? UnknownTHROMBOPLASTIN TIME [id number] 18:48:00 Test Item Value Reference Range Interpretation Comments THROMBOPLASTIN TIME 35.9 SECONDS 22.5-35.3 H *Therap eutic level PARTIAL (test code = for hep rina: 1.5 - PTT) 2.5 times the average patient value of 30.0 seconds. The aP TT tet should not be used to evaluat e low moleculat weigh t heparin anticoagulant therapy. Is patient on anticoagulants? UnknownUA RFLX MICROSCOPIC [id number] 18:43:00 Test Item Value Reference Range Interpretation Comments UA COLOR (test code = COLU) [place] YELLOW UA APPEARANCE (test code = Turbid CLEAR A APPU) UA GLUCOSE DIPSTICK (test NORMAL mg/dL NEGATIVE code = DGLUU) UA BILIRUBIN DIPSTICK (test NEGATIVE NEGATIVE code = BILU) UA KETONE DIPSTICK (test code NEGATIVE mg/dL NEGATIVE = KETU) UA SPECIFIC GRAVITY (test 1.016 1.001-1.035 N code = SGU) UA BLOOD DIPSTICK (test code 3+ = RIYA) UA PH DIPSTICK (test code = 8.5 5.5-7.0 H XI) UA PROTEIN DIPSTICK (test 50 mg/dL NEGATIVE A code = PROU) UA UROBILINOGEN DIPSTICK NORMAL mg/dL NORMAL (test code = URO) UA NITRITE DIPSTICK (test NEGATIVE NEGATIVE code = ADELE) UA LEUKOCYTE ESTERASE TRACE NEGATIVE DIPSTICK (test code = LEUU) UA COMMENT (test code = COMU) VOLUME 10-12 ML URINE SPECIMEN DESCRIPTION Clean Catch (test code = UASPEC) UA WBC (test code = WBCU) #/hpf <10 UA SQUAMOUS CELLS (test code #/lpf <100 = SQU) UA CULTURE NEEDED? (test code = UACULT) Indication for culture: Flank PainURINE SOURCE: Clean CatchUA MICROSCOPIC 2020-01-07 18:43:00 Test Item Value Reference Range Interpretation Comments UA RBC (test code = RBCU) #/HPF NONE SEEN Indication for culture: Flank PainURINE SOURCE: Clean CatchUA RFLX MICROSCOPIC [id number] 18:43:00 Test Item Value Reference Range Interpretation Comments UA COLOR (test code = COLU) [place] YELLOW UA APPEARANCE (test code = Turbid CLEAR A APPU) UA GLUCOSE DIPSTICK (test NORMAL mg/dL NEGATIVE code = DGLUU) UA BILIRUBIN DIPSTICK (test NEGATIVE NEGATIVE code = BILU) UA KETONE DIPSTICK (test code NEGATIVE mg/dL NEGATIVE = KETU) UA SPECIFIC GRAVITY (test 1.016 1.001-1.035 N code = SGU) UA BLOOD DIPSTICK (test code 3+ = RIYA) UA PH DIPSTICK (test code = 8.5 5.5-7.0 H XI) UA PROTEIN DIPSTICK (test 50 mg/dL NEGATIVE A code = PROU) UA UROBILINOGEN DIPSTICK NORMAL mg/dL NORMAL (test code = URO) UA NITRITE DIPSTICK (test NEGATIVE NEGATIVE code = ADELE) UA LEUKOCYTE ESTERASE TRACE NEGATIVE DIPSTICK (test code = LEUU) UA COMMENT (test code = COMU) VOLUME 10-12 ML URINE SPECIMEN DESCRIPTION Clean Catch (test code = UASPEC) UA WBC (test code = WBCU) #/hpf <10 UA SQUAMOUS CELLS (test code #/lpf <100 = SQU) UA CULTURE NEEDED? (test code = UACULT) Indication for culture: Flank PainURINE SOURCE: Clean CatchUA MICROSCOPIC 2020-01-07 18:43:00 Test Item Value Reference Range Interpretation Comments UA RBC (test code = RBCU) #/HPF NONE SEEN Indication for culture: Flank PainURINE SOURCE: Clean CatchCBC W/AUTO DIFF 2020-01-07 18:33:00 Test Item Value Reference Range Interpretation Comments WHITE BLOOD CELL (test code = 10.66 x10 3/uL 4.80-10.80 N WBC) RED BLOOD CELL (test code = 5.12 x10 6/uL 4.7-6.1 N RBC) HEMOGLOBIN (test code = HGB) 15.5 G/DL 14.0-17.0 N HEMATOCRIT (test code = HCT) 44.2 % 42-52 N MEAN CELL VOLUME (test code = 86.3 FL 80-94 N MCV) MEAN CELL HGB (test code = 30.3 PG 27-31 N MCH) MEAN CELL HGB CONCENTRATION 35.1 G/DL 33-37 N (test code = MCHC) RED CELL DISTRIBUTION WIDTH 12.0 % 11.5-14.5 N (test code = RDW) PLATELET COUNT (test code = 275 x10 3/uL 150-450 N PLT) MEAN PLATELET VOLUME (test 9.8 FL 7.4-10.4 N code = MPV) NEUTROPHIL % (test code = NT%) 53.6 % 42-86 N IMMATURE GRANULOCYTE % (test 0.2 % 0.0-2.0 N code = IG%) LYMPHOCYTE % (test code = LY%) 37.7 % 24-44 N MONOCYTE % (test code = MO%) 6.7 % 0.0-4.0 H EOSINOPHIL % (test code = EO%) 1.3 % 0.0-2.7 N BASOPHIL % (test code = BA%) 0.5 % 0.0-0.5 N NUCLEATED RBC % (test code = 0.0 % 0.0-0.0 N NRBC%) NEUTROPHIL # (test code = NT#) 5.72 x10 3/uL 1.8-7.7 N IMMATURE GRANULOCYTE # (test 0.02 x10 3/uL 0.00-0.03 N code = IG#) LYMPHOCYTE # (test code = LY#) 4.02 x10 3/uL 1.0-4.8 N MONOCYTE # (test code = MO#) 0.71 x10 3/uL 0.0-0.8 N EOSINOPHIL # (test code = EO#) 0.14 x10 3/uL 0.0-0.5 N BASOPHIL # (test code = BA#) 0.05 x10 3/uL 0.0-0.2 N NUCLEATED RBC # (test code = 0.0 X10 3/uL 0.0-0.2 N NRBC#) - XR CHEST 2 [id number] 09:09:00 Patient Name: VLADISLAV MONAHAN Unit No: [id number] EXAMS: CPT CODE: [id number] XR CHEST 2 V [id number] Reason: chest pain FINDINGS: Two views of th e chest show normal heart size and pulmonary vasculature. The lungs are clear bilaterally. There is no focal infiltrate, effusion or pneumothorax. IMPRESSION: No acute cardiopulmonary findings at 0909 Reported and signed by: Alex White MD CC: Zhang Olivarez MD Technologist: Alexandr Mckinley; Vivek Rosen RT Trscrpt Dt/ ([email or web address] Orig Print D/T: S: 09/12/2018 (0913) [facility] NAME: BHAVNA MONAHAN [address] PHYS: Zhang Fernandez MD [facility] [address] : 1990 AGE: 28 SEX: M LOC: HELADIO PHONE #: [phone] EXAM DATE: 09/12/2018 STATUS: PRE ER FAX #: RAD NO: DC Dt: PAGE 1 Signed Report"
[2021-09-05] MEDS ORDERED: PANTOPRAZOLE 40 MG INJ ONE (10:43)
[2021-09-05 10:51] LABS: Absolute Lymphocytes (CBC) 1.9 K/uL (0.7-4.9); Hematocrit 44.8 % (39.6-49.0); Lymphocytes % 19.6 % (15.3-44.8); MPV 8.4 fL (7.6-11.3); RBC Red Blood Cell Count 4.99 M/uL (4.33-5.43)
[2021-09-05 11:18] LABS: ALT/SGPT 24 U/L (12-78); AST/SGOT 11 U/L (15-37); Albumin 4.1 g/dL (3.4-5.0); Alkaline Phosphatase 57 U/L (45-117); BUN Blood Urea Nitrogen 9 mg/dL (7-18); Bicarbonate 27 mmol/L (21-32); Bilirubin Direct 0.1 mg/dL (0-0.2); Bilirubin Total 0.4 mg/dL (0.2-1.0); Glucose Level 101 mg/dL (74-106); Lipase 62 U/L (73-393); Potassium 4.2 mmol/L (3.5-5.1); Sodium Level 140 mmol/L (136-145)
--- NOTE | 2021-09-05 11:19 | RAD REPORT ---
EXAM DESCRIPTION: US - Abdomen Exam Limited - 09/05/2021 11:06 am CLINICAL HISTORY: Abdominal pain. COMPARISON: None. FINDINGS: The gallbladder wall is not thickened. A gallstone is not seen. The biliary tree is normal caliber. IMPRESSION: Unremarkable gallbladder ultrasound.
--- NOTE | 2021-09-05 11:56 | EDPHYS ---
Physician Documentation [facility] Name: Efrain Chavez Age: 31 yrs Sex: Male : 1990 Arrival Date: 09/05/2021 Time: 10:19 Bed 7 Private MD: ED Physician Gordon Osullivan HPI: 09/05 11:54 This 31 yrs old Male presents to ER via Ambulatory with complaints of Epigastric Pain, kb Chest Pain. 11:54 The patient presents with abdominal pain in the epigastric area. Onset: The kb symptoms/episode began/occurred 1 month(s) ago. The symptoms radiate to chest. Associated signs and symptoms: Pertinent positives: chest pain, Pertinent negatives: nausea, vomiting, and diarrhea, fever. The symptoms are described as constant. Modifying factors: The symptoms are alleviated by nothing, the symptoms are aggravated by pressure. Severity of pain: At its worst the pain was moderate in the emergency department the pain is unchanged. The patient has not experienced similar symptoms in the past. The patient has not recently seen a physician. Historical: - Allergies: 10:27 No Known Allergies; jh5 - PMHx: 10:27 kidney stones; 5 - Immunization history:: Adult Immunizations up to date. - Social history:: Smoking status: Reported history of juuling and/or vaping. ROS: 11:45 Constitutional: Negative for fever, chills, and weight loss. kb 11:45 Cardiovascular: Positive for chest pain, Negative for edema, orthopnea, palpitations, paroxysmal nocturnal dyspnea. 11:45 Abdomen/GI: Positive for abdominal pain, Negative for nausea, vomiting, and diarrhea. 11:45 All other systems are negative. Exam: 11:45 Constitutional: This is a well developed, well nourished patient who is awake, alert, kb and in no acute distress. Head/Face: Normocephalic, atraumatic. ENT: Moist Mucous membranes Cardiovascular: Regular rate and rhythm with a normal S1 and S2. No gallops, murmurs, or rubs. No pulse deficits. Respiratory: Respirations even and unlabored. No increased work of breathing. Talking in full sentences Skin: Warm, dry with normal turgor. Normal color. MS/ Extremity: Pulses equal, no cyanosis. Neurovascular intact. Full, normal range of motion. Neuro: Awake and alert, GCS 15, oriented to person, place, time, and situation. Moves all extremities. Normal gait. Psych: Awake, alert, with orientation to person, place and time. Behavior, mood, and affect are within normal limits. 11:45 Abdomen/GI: Inspection: abdomen appears normal, Bowel sounds: normal, in all quadrants, Palpation: soft, in all quadrants, mild abdominal tenderness, in the epigastric area. Vital Signs: 10:24 BP 121 / 63; Pulse 89; Resp 18; Temp 98.9; Pulse Ox 100% ; Weight 65.77 kg; Height 5 jh5 ft. 10 in. (177.80 cm); Pain 8/10; 11:38 BP 116 / 69; Pulse 74; Resp 18 S; Pulse Ox 100% on R/A; jd3 10:24 Body Mass Index 20.81 (65.77 kg, 177.80 cm) 5 MDM: 10:27 Patient medically screened. kb 11:45 Data reviewed: vital signs, nurses notes. Data interpreted: Pulse oximetry: on room air kb is 100 %. Interpretation: normal. Counseling: I had a detailed discussion with the patient and/or guardian regarding: the historical points, exam findings, and any diagnostic results supporting the discharge/admit diagnosis, lab results, radiology results, the need for outpatient follow up, a family practitioner, to return to the emergency department if symptoms worsen or persist or if there are any questions or concerns that arise at home. 09/05 10:31 Order name: Basic Metabolic Panel; Complete Time: 11:19 kb 09/05 10:31 Order name: CBC with Diff; Complete Time: 10:53 kb 09/05 10:31 Order name: Hepatic Function; Complete Time: 11:19 kb 09/05 10:31 Order name: Lipase; Complete Time: 11:19 kb 09/05 10:31 Order name: Troponin HS; Complete Time: 11:19 kb 09/05 10:31 Order name: Chest Single View XRAY kb 09/05 10:31 Order name: IV Saline Lock; Complete Time: 10:46 kb 09/05 10:31 Order name: Labs collected and sent; Complete Time: 10:46 kb 09/05 10:31 Order name: EKG; Complete Time: 10:32 kb 09/05 10:31 Order name: EKG - Nurse/Tech; Complete Time: 10:39 kb 09/05 10:31 Order name: US Abdomen Limited; Complete Time: 11:21 kb Administered Medications: 10:45 Drug: ProTONIX (pantoprazole) 40 mg Route: IVP; Site: right antecubital; jd3 12:03 Follow up: Response: No adverse reaction jd3 Disposition: 14:44 Co-signature as Attending Physician, Gordon Osullivan MD. rn Disposition Summary: 09/05/21 11:55 Discharge Ordered Location: Home kb Condition: Stable kb Diagnosis - Upper abdominal pain, unspecified kb Followup: kb - With: Emergency Department - When: As needed - Reason: Worsening of condition Followup: kb - With: Private Physician - When: 2 - 3 days - Reason: Recheck today's complaints, Continuance of care, Re-evaluation by your physician Discharge Instructions: - Discharge Summary Sheet kb - Abdominal Pain, Adult, [id number] kb Forms: - Medication Reconciliation Form kb - Thank You Letter kb - Antibiotic Education kb - Prescription Opioid Use kb Prescriptions: - Protonix 40 mg Oral Tablet - take 1 tablet by ORAL route once daily; 30 tablet; Refills: 0, Product kb Selection Permitted Signatures: Dispatcher [employer] EDMS Dione Gonzales, MATERIAL REQUISITIONER-C MATERIAL REQUISITIONER-Lonb Gordon Oslulivan MD MD rn Davies, Jonathon RN RN jd3 Jessica Nelson RN RN jh5
--- NOTE | 2021-09-05 11:56 | ER ---
Nurse's Notes [facility] Name: Efrain Chavez Age: 31 yrs Sex: Male : 1990 Arrival Date: 09/05/2021 Time: 10:19 Bed 7 Private MD: Diagnosis: Upper abdominal pain, unspecified Presentation: 09/05 10:24 Chief complaint: Patient states: chest pain x1 month; [facility] told me pulled muscle in 5 chest but got worse so I went to [facility] to get checked out. When pain gets worse I get light headed; I passed out this morning and woke up on the floor. Coronavirus screen: Vaccine status: Patient reports being unvaccinated. Client denies travel out of the [place] in the last 14 days. Ebola Screen: Patient negative for fever greater than or equal to 101.5 degrees Fahrenheit, and additional compatible Ebola Virus Disease symptoms Patient denies exposure to infectious person. Patient denies travel to an Ebola-affected area in the 21 days before illness onset. Initial Sepsis Screen: Does the patient meet any 2 criteria? No. Patient's initial sepsis screen is negative. Does the patient have a suspected source of infection? No. Patient's initial sepsis screen is negative. Risk Assessment: Do you want to hurt yourself or someone else? Patient reports no desire to harm self or others. Onset of symptoms was August 05, 2021. 10:24 Method Of Arrival: Ambulatory [facility] 10:24 Acuity: ROMULO 3 5 Triage Assessment: 10:27 General: Appears in no apparent distress. comfortable, slender, Behavior is calm, jh5 cooperative, appropriate for age. Pain: Complains of pain in chest and abdomen. GI: Reports upper abdominal pain. Historical: - Allergies: 10:27 No Known Allergies; 5 - PMHx: 10:27 kidney stones; 5 - Immunization history:: Adult Immunizations up to date. - Social history:: Smoking status: Reported history of juuling and/or vaping. Screenin:28 Abuse screen: Denies threats or abuse. Denies injuries from another. Nutritional 5 screening: No deficits noted. Tuberculosis screening: No symptoms or risk factors identified. Fall Risk None identified. Assessment: 10:46 General: Appears in no apparent distress. Behavior is calm, cooperative. Pain: jh6 Complains of pain in epigastric area Pain radiates to anterior aspect of left shoulder Pain currently is 7 out of 10 on a pain scale. at worst was 10 out of 10 on a pain scale. Quality of pain is described as burning, dull, sharp, stabbing, Pain began 2-3 days ago. Is intermittent, Aggravated by eating, drinking. GI: Abdomen is flat, Abdomen is tender to palpation in epigastric area. 11:38 Reassessment: Patient appears in no apparent distress at this time. No changes from jd3 previously documented assessment. Patient and/or family updated on plan of care and expected duration. Pain level reassessed. Patient is alert, oriented x 3, equal unlabored respirations, skin warm/dry/pink. Vital Signs: 10:24 BP 121 / 63; Pulse 89; Resp 18; Temp 98.9; Pulse Ox 100% ; Weight 65.77 kg; Height 5 5 ft. 10 in. (177.80 cm); Pain 8/10; 11:38 BP 116 / 69; Pulse 74; Resp 18 S; Pulse Ox 100% on R/A; jd3 10:24 Body Mass Index 20.81 (65.77 kg, 177.80 cm) 5 ED Course: 10:19 Patient arrived in ED. am2 10:20 Dione Gonzales FNP-C [facility] kb 10:20 Gordon Osullivan MD is Attending Physician. kb 10:27 Triage completed. 5 10:27 Arm band placed on right wrist. 5 10:28 Patient has correct armband on for positive identification. 5 10:35 Linda Rincon, WENDY is Primary Nurse. 6 10:48 Inserted saline lock: 20 gauge in right antecubital area, using aseptic technique. jh6 Blood collected. 11:06 US Abdomen Limited In Process Unspecified. EDMS 11:50 Chest Single View XRAY In Process Unspecified. EDMS 12:02 No provider procedures requiring assistance completed. IV discontinued, intact, jd3 bleeding controlled, No redness/swelling at site. Pressure dressing applied. 12:03 No provider procedures requiring assistance completed. ke1 Administered Medications: 10:45 Drug: ProTONIX (pantoprazole) 40 mg Route: IVP; Site: right antecubital; jd3 12:03 Follow up: Response: No adverse reaction jd3 Outcome: 11:55 Discharge ordered by . jennifer 12:03 Discharged to home ambulatory, with family. jd3 12:03 Condition: stable 12:03 Discharge instructions given to patient, Instructed on discharge instructions, follow up and referral plans. medication usage, Demonstrated understanding of instructions, follow-up care, medications, Prescriptions given X 1. 12:08 Patient left the ED. jd3 Signatures: Dispatcher [employer] EDLA Dione Gonzales, FINANCIAL CENTER MANAGER-C FINANCIAL CENTER MANAGER-Nicolle Zaragoza Jonathon, RN RN jd3 Jessica Nelson RN RN jh5 Linda Rincon RN RN jh6 Clarissa Hensley RN RN ke1
[2021-09-05 12:22] VITALS: TEMP 98.9; O2SAT 100
[2021-09-05 12:23] VITALS: BP 116/69
--- NOTE | 2021-09-05 12:59 | RAD REPORT ---
EXAM DESCRIPTION: rEica Single View09/05/2021 11:50 am CLINICAL HISTORY: Chest pain COMPARISON: none FINDINGS: The lungs appear clear of acute infiltrate. The heart is normal size IMPRESSION: No acute abnormalities displayed
--- NOTE | 2021-09-06 14:45 | EKG ---
Test Date: 2021-09-05 Test Time: 10:35:12 Electrical Panel Builder: ROSEANNE MEASUREMENT RESULTS: Intervals: Rate: 78 IL: 130 QRSD: 86 QT: 400 QTc: 456 [place]: P: 28 IL: 130 QRS: 77 T: 63 INTERPRETIVE STATEMENTS: Normal sinus rhythm with sinus arrhythmia Normal ECG No previous ECG available for comparison Electronically Signed On 09-06-21 14:43:36 RAILROAD BRAKE OPERATOR by Eliezer De Oliveira
== END 2021-09-05 12:08 | disposition home or self-care (01) ==
LOC: ER 10:16
DX: R10.13 Epigastric pain (principal); Z87.442 Personal history of urinary calculi
CPT/HCPCS: 93005; 85025; 80048; 36415; 80076; 84484; 83690; 71045; 76705; 96374; 99284; C9113